=== PATIENT | female | born 1990 | race Caucasian/White ===

== ENCOUNTER → 2016-07-22 | Outpatient (CLI) | payer MEDICAID | LOC: RAD 12:40 | PROVIDERS: ATTEND Internal Medicine | DX: R10.84 Generalized abdominal pain (principal) | CPT/HCPCS: 78227; A9537; Q9969; J2805 ==

== ENCOUNTER 2016-07-28 11:12 | Day surgery (SDC) | payer MEDICAID ==
[~2016-07-28 11:12] MED LIST: PROPOFOL INJ 200 MG/20 ML VIAL IV ONE
[2016-07-28 14:09] VITALS: BP 116/72
--- NOTE | 2016-07-28 14:30 | Operative Report ---
Operative Report DATE OF SURGERY: 07/28/16 Operative Report: The risks, benefits and alternatives of the procedure including risks of bleeding, perforation requiring surgery are explained to the patient in detail and informed consent is obtained. The patient is taken back to the endoscopy suite and placed in a left, lateral decubital position. Timeout is called. Propofol medication is administered. A rectal examination was done which did not reveal any masses, tears or fissures. An Olympus videoscope was inserted into the patient's rectum. Keeping the lumen in site at all times the scope was then gradually advanced all the way to the cecum the cecum was identified by the usual anatomical landmarks of the ileocecal valve as well as the appendiceal office. Intubation of the terminal ileum is done. The scope was then sequentially pulled back out via the rest segments of the colon including the ascending colon, hepatic flexure, transverse colon, splenic flexure, descending colon and finally into the rectosigmoid portions of the colon. Retroflexion maneuver is done. Photo documentations obtained. Prep is good. PREOPERATIVE DIAGNOSIS: Blood in stool, abdominal pain POSTOPERATIVE DIAGNOSIS: Mild terminal ileitis status post biopsy. 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 Colitis noted in the area of the rectosigmoid area from 0-18 cm. Status post biopsy rule out Crohn's disease. OPERATION: Colonoscopy with biopsy SURGEON: GARY MATTHEWS ANESTHESIA: LMAC TISSUE REMOVED OR ALTERED: Ileocecal valve specimen obtained. Biopsies in the terminal ileum obtained. Biopsies in the rectosigmoid portion of the colon obtained COMPLICATIONS: None. ESTIMATED BLOOD LOSS: none PROCEDURE: Patient tolerated the procedure well. No immediate postprocedure complications are noted. Patient discharged in good condition. Discharge date 07/28/2016. Discharge diet: Regular. Discharge activity: Regular. Await on biopsies. 2-3 week follow-up to discuss findings. She needs to be started on 5-ASA compounds. Surveillance colonoscopy in 3-5 years. Patient is instructed to call the office or proceed to the emergency room should there be any further problems or questions.
== END 2016-07-28 13:52 | disposition home or self-care (01) ==
LOC: END 11:12
PROVIDERS: ATTEND Internal Medicine Gastroenterology
PROC: 0DBP8ZX Excision of Rectum, Via Natural or Artificial Opening Endoscopic, Diagnostic (ICD-10-PCS; 2016-07-28)
PROC: 0DBC8ZX Excision of Ileocecal Valve, Via Natural or Artificial Opening Endoscopic, Diagnostic (ICD-10-PCS; 2016-07-28)
PROC: 0DBB8ZX Excision of Ileum, Via Natural or Artificial Opening Endoscopic, Diagnostic (ICD-10-PCS; principal; 2016-07-28 14:00)
DX: K52.9 Noninfective gastroenteritis and colitis, unspecified (principal); K92.1 Melena; F98.8 Other specified behavioral and emotional disorders with onset usually occurring in childhood and adolescence; Z79.899 Other long term (current) drug therapy
CPT/HCPCS: 45380; 88305 ×2; 88313 ×2; J2704; 810